=== PATIENT | male | born 1995 | race African-American/Black ===

== ENCOUNTER 2017-05-04 23:39 | Emergency (ER) | payer SELFPAY ==
[~2017-05-04] VITALS: Ht 180.3 cm; Wt 95.0 kg
[2017-05-04 23:42] VITALS: BP 135/79; PULSE 56; RESP 14; TEMP 98.7; O2SAT 99
--- NOTE | 2017-05-05 00:59 | PD ---
HPI Chief Complaint: Complaint Time Seen by Provider: 00:42 Travel History International Travel<30 days: No Contact w/Intl Traveler<30days: No Traveled to known affect area: No History of Present Illness HPI 21-year-old male with no significant medical history presents emergency department for evaluation of burning with urination. Patient states this is been worsening over last 2 weeks. Patient was treated for gonorrhea but states his symptoms never completely resolved. Denies any abdominal pain. No fever or chills. He does continue to have sexual intercourse but states he is using on prophylaxis. He has no other symptoms to report. [facility] Past Medical History Medical History: Denies Significant Hx Diminished Hearing: No Past Surgical History Surgical History: No Previous Surgery Social History Alcohol Use: No Tobacco Use: No Substance Use: No Allergies-Medications (Allergen,Severity, Reaction): Coded Allergies: No Known Allergies (Unverified , 05/05/17) Reported Meds & Prescriptions Reported Meds & Active Scripts Active No Active Prescriptions or Reported Medications Review of Systems Except as stated in HPI: all other systems reviewed are Neg Physical Exam Narrative GENERAL: Well-nourished, well-developed male patient, in no acute distress SKIN: Focused skin assessment warm/dry. HEAD: Normocephalic. EYES: No scleral icterus. No injection or drainage. NECK: Supple, trachea midline. No JVD or lymphadenopathy. CARDIOVASCULAR: Regular rate and rhythm without murmurs, gallops, or rubs. RESPIRATORY: Breath sounds equal bilaterally. No accessory muscle use. GASTROINTESTINAL: Abdomen soft, non-tender, nondistended. GENITOURINARY: Circumcised. Testes descended bilaterally without evidence of rotation. No lesions or erythema. Yellow-white urethral discharge. Data Data Last Documented VS Vital Signs Date Time Temp Pulse Resp B/P (MAP) Pulse Ox O2 Delivery O2 Flow Rate FiO2 05/04/17 23:42 98.7 56 14 135/79 (97) 99 Orders Orders Ceftriaxone Inj (Rocephin Inj) (05/05/17 01:00) Lidocaine 1% Inj (50 Ml) (Xylocaine 1% I (05/05/17 01:00) Azithromycin (Zithromax) (05/05/17 01:00) Urinalysis - C+S If Indicated (05/05/17 00:56) Gc And Chlamydia Pcr (05/05/17 00:56) Ed Discharge Order (05/05/17 00:59) Labs Laboratory Tests Test 05/05/17 01:00 Urine Color YELLOW Urine Turbidity CLEAR Urine pH 6.5 Urine Specific [place] 1.016 Urine Protein NEG mg/dL Urine Glucose (UA) NEG mg/dL Urine Ketones NEG mg/dL Urine Occult Blood NEG Urine Nitrite NEG Urine Bilirubin NEG Urine Urobilinogen 2.0 MG/DL Urine Leukocyte Esterase NEG Urine WBC 1 /hpf Microscopic Urinalysis Comment CULT NOT INDICATED Chlamydia trachomatis DNA (PCR) NOT DETECTED Neisseria gonorrhoeae DNA (PCR) NOT DETECTED MDM Medical Decision Making Medical Screen Exam Complete: Yes Emergency Medical Condition: Yes Medical Record Reviewed: Yes Differential Diagnosis Urethritis versus STD versus cystitis Narrative Course 21-year-old male presents to emergency department for evaluation of dysuria and penile discharge. Patient has history of gonorrhea and states that his symptoms are similar. Patient will be treated while GC PCR sent. He is counseled on safe sex practices. He agrees to return immediately with any acute worsening symptoms. Diagnosis Primary Impression: Dysuria Additional Impression: Possible exposure to STD Referrals: Primary Care Physician [facility] Patient Instructions: General Instructions, Safe Sex (ED) Additional Instructions: Wear condoms when having sex If you test positive, all partners will need to be treated Return immediately with any acute worsening of symptoms Med/Other Pt SpecificInfo: No Change to Meds Scripts No Active Prescriptions or Reported Meds Disposition: 01 DISCHARGE HOME Condition: Stable Amanda Carrera May 05, 2017 00:58
[2017-05-05] MEDS ORDERED: AZITHROMYCIN 250 MG TAB PO ONE (01:00)
[2017-05-05] MEDS ORDERED: cefTRIAXone 250 MG VIAL IM ONE (01:00)
[2017-05-05] MEDS ORDERED: LIDOCAINE HCL 1% 50 ML VIAL XX ONE (01:00)
[2017-05-05 01:19] LABS: BILIRUBIN, URINE NEG (NEG); BLOOD, URINE NEG (NEG); GLUCOSE,URINE NEG (NEG); KETONE, URINE NEG (NEG); NITRITE,URINE NEG (NEG); PH, URINE 6.5 (5.0-8.5); URINE COLOR YELLOW (YELLW/STRAW); URINE LEUKOCYTE ESTERASE NEG (NEG)
== END 2017-05-05 02:45 | disposition home or self-care (01) ==
LOC: NEPD 23:39
DX: R30.0 Dysuria (principal)
CPT/HCPCS: 81001; 87491; 87591; 96372; 99284; J0696

== ENCOUNTER 2017-07-18 20:12 | Emergency (ER) | payer SELFPAY ==
[~2017-07-18] VITALS: Ht 180.3 cm; Wt 95.0 kg
[2017-07-18 21:36] VITALS: BP 110/59; PULSE 69; RESP 18; TEMP 98.9; O2SAT 100
[2017-07-18 22:24] LABS: BILIRUBIN, URINE NEG (NEG); BLOOD, URINE NEG (NEG); GLUCOSE,URINE NEG (NEG); KETONE, URINE NEG (NEG); NITRITE,URINE NEG (NEG); SQUAMOUS EPITHELIAL CELL URINE <1 /hpf (0-5); URINE COLOR YELLOW (YELLW/STRAW); URINE LEUKOCYTE ESTERASE TRACE (NEG)
== END 2017-07-19 00:20 | disposition left against medical advice (07) ==
LOC: NED 20:12
DX: N50.89 Other specified disorders of the male genital organs (principal)
CPT/HCPCS: 81001; 99281

== ENCOUNTER 2017-08-06 17:48 | Emergency (ER) | payer SELFPAY ==
[2017-08-06 18:09] VITALS: BP 113/56; PULSE 59; RESP 18; TEMP 98.6; O2SAT 98
--- NOTE | 2017-08-06 20:57 | PD ---
HPI Chief Complaint: Complaint Time Seen by Provider: 20:51 Travel History International Travel<30 days: No Contact w/Intl Traveler<30days: No Traveled to known affect area: No History of Present Illness HPI 22-year-old male here for evaluation of dysuria. Patient reports burning with urination for the last couple of weeks. He is sexually active with more than one partner and does not always use protection. He denies hematuria or visible discharge. No testicular or scrotal pain. No abdominal pain. No fevers. PFSH Past Medical History Diminished Hearing: No ?: Not Social History Alcohol Use: No Tobacco Use: No Substance Use: No Allergies-Medications (Allergen,Severity, Reaction): Coded Allergies: No Known Allergies (Unverified , 07/18/17) Reported Meds & Prescriptions Reported Meds & Active Scripts Active No Active Prescriptions or Reported Medications Review of Systems Except as stated in HPI: all other systems reviewed are Neg Physical Exam Narrative GENERAL: Well-developed, well-nourished, comfortable, no apparent distress. SKIN: Focused skin assessment warm/dry. ENT: Mucous membranes pink and moist. CARDIOVASCULAR: Regular rate and rhythm. RESPIRATORY: No accessory muscle use. GASTROINTESTINAL: Abdomen soft, non-tender, nondistended. : Normal circumcised male. No rash or lesions. No scrotal tenderness or masses. No penile discharge. NEUROLOGICAL: Awake and alert. No obvious cranial nerve deficits. Motor grossly within normal limits. Normal speech. PSYCHIATRIC: Appropriate mood and affect; insight and judgment normal. Data Data Last Documented VS Vital Signs Date Time Temp Pulse Resp B/P (MAP) Pulse Ox O2 Delivery O2 Flow Rate FiO2 08/06/17 18:09 98.6 59 18 113/56 (75) 98 Orders Orders Urinalysis - C+S If Indicated (08/06/17 20:54) Gc And Chlamydia Pcr (08/06/17 20:54) Ceftriaxone Inj (Rocephin Inj) (08/06/17 21:00) Sodium Chloride 0.9% Flush (Ns Flush) (08/06/17 21:00) Lidocaine 1% Inj (50 Ml) (Xylocaine 1% I (08/06/17 21:00) Azithromycin (Zithromax) (08/06/17 21:00) Lidocaine 1% Inj (Xylocaine 1% Inj) (08/06/17 21:03) Labs Laboratory Tests Test 08/06/17 21:00 Urine Color YELLOW Urine Turbidity CLEAR Urine pH 6.0 Urine Specific [place] 1.020 Urine Protein NEG mg/dL Urine Glucose (UA) NEG mg/dL Urine Ketones NEG mg/dL Urine Occult Blood NEG Urine Nitrite NEG Urine Bilirubin NEG Urine Urobilinogen 4.0 MG/DL Urine Leukocyte Esterase TRACE Urine WBC 3 /hpf Microscopic Urinalysis Comment CULT NOT INDICATED MDM Medical Decision Making Medical Screen Exam Complete: Yes Emergency Medical Condition: Yes Differential Diagnosis Urethritis, UTI, cystitis Narrative Course Patient was empirically treated for gonorrhea and chlamydia with IM Rocephin and oral azithromycin. Vital signs are within normal limits. UA shows 4 urobilinogen, trace leukocyte esterase, 3 WBCs. Patient has signs and symptoms consistent with urethritis. Aside from Rocephin and azithromycin, the patient will also be started on doxycycline. Also give him a prescription for Pyridium to help with his dysuria. His abdominal exam is benign. His symptoms have been going on for about 2 weeks. He is stable for discharge home with outpatient follow-up with a primary care physician this week. I will also given the name of a urologist to follow-up with as well should his symptoms continue. He was advised on when to return to the emergency department. He verbalizes understanding and agreement with plan. Diagnosis Primary Impression: Urethritis Referrals: Jin Johnson DO 3 days Urologist Primary Care Physician 3 days Additional Instructions: Follow-up with a primary care physician this week. Follow-up with urologist Dr. Johnson or a urologist of your choice this week. Return to the emergency department for worsening symptoms or any other concerns. Scripts Phenazopyridine (Pyridium) 100 Mg Tab 100 MG PO Q8H Y for DYSURIA for 5 Days, #15 TAB 0 Refills Prov: Fadi Ness MD 08/06/17 Doxycycline Hyclate (Doxycycline Hyclate) 100 Mg Cap 100 MG PO BID for Infection for 7 Days, #14 CAP 0 Refills Prov: Fadi Ness MD 08/06/17 Disposition: 01 DISCHARGE HOME Condition: Stable Fadi Ness MD Aug 06, 2017 20:57
[2017-08-06] MEDS ORDERED: AZITHROMYCIN 250 MG TAB PO ONE (21:00)
[2017-08-06] MEDS ORDERED: cefTRIAXone 250 MG VIAL IM ONE (21:00)
[2017-08-06] MEDS ORDERED: LIDOCAINE HCL 1% 50 ML VIAL XX ONE (21:00)
[2017-08-06] MEDS ORDERED: SODIUM CHLORIDE 0.9% FLUSH 10 ML FLUSH IVF PRN (21:00)
[2017-08-06] MEDS ORDERED: LIDOCAINE HCL 1% 20 ML VIAL ONE (21:03)
[2017-08-06 21:37] LABS: BILIRUBIN, URINE NEG (NEG); BLOOD, URINE NEG (NEG); GLUCOSE,URINE NEG (NEG); KETONE, URINE NEG (NEG); NITRITE,URINE NEG (NEG); URINE COLOR YELLOW (YELLW/STRAW); URINE LEUKOCYTE ESTERASE TRACE (NEG)
[2017-08-06] MEDS ORDERED: DOXY100C PO (21:54)
[2017-08-06] MEDS ORDERED: PHEN0.4T PO (21:54)
[2017-08-06] MEDS ORDERED: PHENAZOPYRIDINE HCL 100 MG TAB PO ONE (22:00)
[2017-08-06] MEDS ORDERED: DOXYCYCLINE HYCLATE 100 MG TAB PO ONE (22:00)
== END 2017-08-06 22:13 | disposition home or self-care (01) ==
LOC: NEPD 17:48
DX: N34.2 Other urethritis (principal); R30.0 Dysuria
CPT/HCPCS: 81001; 87491; 87591; 96372; 99283; J0696